=== PATIENT | male | born 1980 | race Caucasian/White ===

== ENCOUNTER 2017-09-19 20:17 | Emergency (ER) | payer SELFPAY ==
[~2017-09-19] VITALS: Ht 200.6 cm; Wt 136.1 kg
[~2017-09-19 20:17] MED LIST: ALBUTEROL0.09 MG/A2 IH; CIPROFLOXACIN500 MG PO; COMBIVENT1 ARO IH; DAYPRO600 M1 PO; FLAGYL500 MG PO; LEVOFLOXACIN500 MG PO; PREDNISONE10 MG PO; VIBRAMYCIN100 MG PO; VICODIN 500 MG-1 TAB PO
[2017-09-19 20:50] LABS: BASO % 0.3 % (0.0-1.0); EOS # 0.1 10*3/uL (0.0-0.4); EOS % 1.2 % (1.0-4.0); HEMATOCRIT 42.8 % (42.0-52.0); HEMOGLOBIN 14.3 g/dl (14.0-18.0); LYMPH % 26.5 % (27.0-41.0); MEAN CELL VOLUME 88.6 fl (80.0-94.0); MEAN CORPUSCULAR HGB 29.6 pg (27.0-31.0); MEAN CORPUSCULAR HGB CONC 33.4 g/dl (33.0-37.0); MEAN PLATELET VOLUME 9.5 fl (9.6-12.3); MONO # 0.4 10*3/uL (0.1-1.0); MONO % 5.2 % (3.0-9.0); NEUT # 5.1 10*3/uL (2.3-7.9); NEUT % 66.5 % (47.0-73.0); PLATELET COUNT AUTOMATED 178 10*3/uL (130-400); RED BLOOD COUNT 4.83 10*6/uL (4.50-5.90); RED CELL DISTRI WIDTH 12.4 % (0-14.5); WHITE BLOOD COUNT 7.7 10*3/uL (4.8-10.8)
[2017-09-19 21:06] LABS: ALBUMIN 3.8 gm/dl (3.1-4.5); ALKALINE PHOSPHATASE 77 U/L (45-117); BUN 18 mg/dl (7-24); CHLORIDE 104 mmol/L (98-107); CREATININE 1.27 mg/dL (0.70-1.30); POTASSIUM 3.7 mmol/L (3.5-5.1); SGOT/AST 14 IU/L (3-35); SGPT/ALT 31 U/L (12-78); SODIUM 139 mmol/L (136-145); TOTAL PROTEIN 7.5 gm/dL (6.4-8.2)
[2017-09-19] MEDS ORDERED: NAPROSYN500 MG PO (22:40)
[2017-09-19] MEDS ORDERED: CYCLOBENZAPRINE10 MG PO (22:40)
== END 2017-09-19 23:39 | disposition home or self-care (01) ==
LOC: ED 20:17
PROVIDERS: Student in an Organized Health Care Education/Training Program
DX: M54.5 Low back pain (principal); F17.200 Nicotine dependence, unspecified, uncomplicated; Z79.899 Other long term (current) drug therapy

== ENCOUNTER 2018-08-19 15:04 | Emergency (ER) | payer OTHER, BC ==
[~2018-08-19] VITALS: Ht 200.6 cm; Wt 165.6 kg
[~2018-08-19 15:04] MED LIST changes: +CYCLOBENZAPRINE10 MG PO; +NAPROSYN500 MG PO
[2018-08-19 15:52] LABS: BASO % 0.2 % (0.0-1.0); EOS % 0.1 % (1.0-4.0); HEMATOCRIT 44.6 % (42.0-52.0); HEMOGLOBIN 14.9 g/dl (14.0-18.0); LYMPH % 15.8 % (27.0-41.0); MEAN CELL VOLUME 89.4 fl (80.0-94.0); MEAN CORPUSCULAR HGB 29.9 pg (27.0-31.0); MEAN CORPUSCULAR HGB CONC 33.4 g/dl (33.0-37.0); MONO # 0.5 10*3/uL (0.1-1.0); MONO % 3.8 % (3.0-9.0); NEUT # 9.9 10*3/uL (2.3-7.9); NEUT % 79.8 % (47.0-73.0); PLATELET COUNT AUTOMATED 200 10*3/uL (130-400); RED BLOOD COUNT 4.99 10*6/uL (4.50-5.90); RED CELL DISTRI WIDTH 12.5 % (0-14.5); WHITE BLOOD COUNT 12.4 10*3/uL (4.8-10.8)
[2018-08-19 16:00] LABS: ACT PARTIAL THROMBO TIME 22.4 SECONDS (20.8-31.5); INTERNATIONAL NORM RATIO 0.9 (2.0-3.5)
[2018-08-19 16:07] LABS: ALBUMIN 4.3 gm/dl (3.1-4.5); ALKALINE PHOSPHATASE 77 U/L (45-117); BUN 11 mg/dl (7-24); CHLORIDE 108 mmol/L (98-107); CREATININE 1.14 mg/dL (0.70-1.30); POTASSIUM 4.1 mmol/L (3.5-5.1); SGOT/AST 18 IU/L (3-35); SGPT/ALT 29 U/L (12-78); SODIUM 141 mmol/L (136-145); TOTAL PROTEIN 8.7 gm/dL (6.4-8.2)
[2018-08-19] MEDS ORDERED: Motrin,Rufen800 MG PO (18:07)
[2018-08-19] MEDS ORDERED: NORCO 5-325 TA1 EACH PO (18:07)
[2018-08-19] MEDS ORDERED: ROBAXIN500 M1 PO (18:07)
== END 2018-08-19 18:19 | disposition home or self-care (01) ==
LOC: ED 15:04
PROVIDERS: Physician Assistant
DX: S13.4XXA Sprain of ligaments of cervical spine, initial encounter (principal); S20.212A Contusion of left front wall of thorax, initial encounter; M25.512 Pain in left shoulder; R10.33 Periumbilical pain; F17.200 Nicotine dependence, unspecified, uncomplicated; Z91.040 Latex allergy status; V89.2XXA Person injured in unspecified motor-vehicle accident, traffic, initial encounter; Y93.89 Activity, other specified; Y92.89 Other specified places as the place of occurrence of the external cause; Y99.8 Other external cause status

== ENCOUNTER 2018-10-04 09:58 | Emergency (ER) | payer BC ==
[~2018-10-04] VITALS: Ht 200.6 cm; Wt 158.8 kg
[~2018-10-04 09:58] MED LIST changes: +Motrin,Rufen800 MG PO; +NORCO 5-325 TA1 EACH PO; +ROBAXIN500 M1 PO
[2018-10-04] MEDS ORDERED: FLONASE ALLERG9.9 ML NAS (13:26)
[2018-10-04] MEDS ORDERED: VIBRAMYCIN100 MG PO (13:26)
== END 2018-10-04 14:28 | disposition home or self-care (01) ==
LOC: ED 09:58
DX: J32.9 Chronic sinusitis, unspecified (principal); F17.200 Nicotine dependence, unspecified, uncomplicated

== ENCOUNTER → 2021-07-15 | Outpatient (CLI) | payer OTHER ==
[~2021-07-15] MED LIST changes: +FLONASE ALLERG9.9 ML NAS
== END | disposition home or self-care (01) ==
LOC: RAD 16:06
PROVIDERS: ATTEND Chiropractor
DX: M54.5 Low back pain (principal)

== ENCOUNTER → 2021-08-02 | Outpatient (CLI) | payer OTHER | END | disposition home or self-care (01) | LOC: ORTHO 00:36 | PROVIDERS: ATTEND Orthopaedic Surgery | DX: M25.561 Pain in right knee (principal) ==